=== PATIENT | male | born 1950 | race African-American/Black ===

== ENCOUNTER 2017-03-01 18:29 | Inpatient (IN) | payer MEDICARE ==
[2017-03-01] MEDS ORDERED: NACL 0.9% 500 ML 500 ML IV ONE ×2 (19:10→21:15)
[2017-03-01 20:50] LABS: Albumin 2.6 g/dL (3.9-5); Albumin/Globulin Ratio 1.4 %; BUN/Creatinine Ratio 25.88; Bilirubin,Total 0.7 mg/dL (0.1-1.2); Calcium 7.8 mg/dL (8.4-10.2); Chloride 94.7 mmol/L (98-107); Total Protein 4.4 g/dL (6.3-8.2)
[2017-03-01 20:51] LABS: Potassium 5.6 mmol/L (3.6-5.0)
[2017-03-01 20:52] LABS: Hematocrit 25.1 % (35.5-45.6); Hemoglobin 8.3 gm/dl (11.8-15.2); Mean Corpuscular HGB Conc 33 % (32-34); Mean Corpuscular Hemoglobin 28 pg (28-32); Mean Corpuscular Volume 85 fl (84-94); Platelet Count 190 K/mm3 (140-440); Red Blood Count 2.96 M/mm3 (3.65-5.03); Red Cell Distribution Width 22.8 % (13.2-15.2); White Blood Count 13.1 K/mm3 (4.5-11.0)
[2017-03-01 21:00] LABS: INR 1.29 (0.87-1.13)
[2017-03-01] MEDS ORDERED: PROTONIX IV ONE (21:15)
[2017-03-01] MEDS ORDERED: KIONEX PO ONE (21:17)
--- NOTE | 2017-03-01 21:18 | Emergency Department Report ---
ED General Adult HPI - General Chief complaint: Dyspnea/Respdistress Stated complaint: UNRESPONSIVE Time Seen by Provider: 03/01/17 21:01 Source: family, EMS (ems notes not available at time of chart dictation), RN notes reviewed, old records reviewed Mode of arrival: Stretcher Limitations: Language Barrier (patient declines formal mechanical product engineer, he requested that family translate for him) - History of Present Illness Initial comments: This is a 67-year-old male, the patient has previously unknown to this provider. Past medical history includes metastatic lung cancer, hypertension, diabetes, heart disease with stents, currently on Plavix. Patient recently admitted to [facility] for hyperkalemia, azotemia, anemia, had a CT scan of the chest which was negative for pulmonary embolus, CT scan of the chest did demonstrate right upper lobe pulmonary artery being occluded secondary to large pulmonary mass, right middle lobe pulmonary artery was noted to be narrowed. Patient also had a CT scan of the abdomen and pelvis which demonstrated the same aforementioned large pulmonary mass, some intra-abdominal lymphadenopathy. Patient also had a noncontrast CT scan of the brain which demonstrated no acute findings or hemorrhage. Patient also has a gastric antrum biopsy, demonstrated "moderate acute and chronic inflammation with associated Helicobacter-like organisms and focal erosion." Laboratory studies also demonstrated anemia, hyperkalemia, without renal insufficiency. The patient is brought to the hospital by his daughter today, she reports that the patient has been generally weak, and had an episode of "spacing out." This is now resolved, she reports that the patient still appears weak, the patient only complains of weakness to her, symptoms are constant, and do not have exacerbating or relieving factors. Chronic shortness of breath, which is not a new, worsening or different, there is no chest pain, there is no abdominal pain , there is no hematemesis or bright red blood per rectum, there are no urinary symptoms. -: Sudden Severity scale (0 -10): 0 Improves with: none Worsens with: none Associated Symptoms: confusion, malaise, weakness - Related Data Home Medications Medication Instructions Recorded Confirmed Last Taken Dexamethasone [Decadron] 4 mg PO Q12H 03/01/17 03/01/17 Unknown HYDROmorphone [Dilaudid] 2 mg PO Q4HR 03/01/17 03/01/17 Unknown Lisinopril [Zestril TAB] 40 mg PO QDAY 03/01/17 03/01/17 Unknown Morphine [Morphine TAB] 15 mg PO 03/01/17 Unknown amLODIPine [Norvasc] 5 mg PO DAILY 03/01/17 03/01/17 Unknown metFORMIN [Glucophage] 750 mg PO BID 03/01/17 03/01/17 Unknown Previous Rx's Medication Instructions Recorded Last Taken Type Aspirin [Aspirin TAB] 325 mg PO QDAY #30 tablet 09/10/13 Unknown Rx Clopidogrel [Plavix] 75 mg PO QDAY #30 tablet 09/10/13 Unknown Rx Isosorbide Mononitrate [Isosorbide 30 mg PO DAILY #30 tab.er.24h 09/10/13 Unknown Rx Mononitrate ER] Metoprolol [Lopressor TAB] 25 mg PO BID #60 tablet 09/10/13 Unknown Rx Pravastatin (Nf) [Pravachol] 40 mg PO QHS #30 tablet 09/10/13 Unknown Rx Allergies Allergy/AdvReac Type Severity Reaction Status Date / Time No Known Allergies Allergy Verified 03/01/17 18:40 ED Review of Systems ROS: Stated complaint: UNRESPONSIVE Other details as noted in HPI Comment: Unobtainable due to pts medical conditions ED Past Medical Hx - Past Medical History Previous Medical History?: Yes Hx Hypertension: Yes Hx Diabetes: No Hx of Cancer: Yes (Small Cell Lung CA) - Social History Smoking Status: Never Smoker Substance Use Type: None - Medications Home Medications: Home Medications Medication Instructions Recorded Confirmed Last Taken Type Aspirin [Aspirin TAB] 325 mg PO QDAY #30 tablet 09/10/13 03/01/17 Unknown Rx Clopidogrel [Plavix] 75 mg PO QDAY #30 tablet 09/10/13 03/01/17 Unknown Rx Isosorbide Mononitrate [Isosorbide 30 mg PO DAILY #30 tab.er.24h 09/10/13 Unknown Rx Mononitrate ER] Metoprolol [Lopressor TAB] 25 mg PO BID #60 tablet 09/10/13 03/01/17 Unknown Rx Pravastatin (Nf) [Pravachol] 40 mg PO QHS #30 tablet 09/10/13 03/01/17 Unknown Rx Dexamethasone [Decadron] 4 mg PO Q12H 03/01/17 03/01/17 Unknown History HYDROmorphone [Dilaudid] 2 mg PO Q4HR 03/01/17 03/01/17 Unknown History Lisinopril [Zestril TAB] 40 mg PO QDAY 03/01/17 03/01/17 Unknown History Morphine [Morphine TAB] 15 mg PO 03/01/17 Unknown History amLODIPine [Norvasc] 5 mg PO DAILY 03/01/17 03/01/17 Unknown History metFORMIN [Glucophage] 750 mg PO BID 03/01/17 03/01/17 Unknown History ED Physical Exam - General Limitations: Language Barrier, Physical Limitation General appearance: alert, lethargic - Head Head exam: Present: atraumatic, normocephalic - Eye Eye exam: Present: normal appearance, EOMI. Absent: nystagmus - ENT ENT exam: Present: mucous membranes dry, normal external ear exam - Neck Neck exam: Present: normal inspection, full ROM. Absent: tenderness, meningismus - Respiratory Respiratory exam: Present: normal lung sounds bilaterally. Absent: respiratory distress, wheezes, rales, rhonchi, stridor, chest wall tenderness, accessory muscle use, decreased breath sounds, prolonged expiratory - Cardiovascular Cardiovascular Exam: Present: normal rhythm, tachycardia, normal heart sounds. Absent: bradycardia, irregular rhythm, systolic murmur, diastolic murmur, rubs, gallop - GI/Abdominal GI/Abdominal exam: Present: soft, normal bowel sounds. Absent: distended, tenderness, guarding, rebound, rigid, pulsatile mass - Rectal Rectal exam: Present: normal inspection, normal rectal tone, heme (+) stool - exam: Present: normal inspection External exam: Present: normal external exam - Extremities Exam Extremities exam: Present: normal inspection, full ROM, normal capillary refill. Absent: calf tenderness - Back Exam Back exam: Present: normal inspection, full ROM. Absent: tenderness, CVA tenderness (R) - Neurological Exam Neurological exam: Present: alert, other (Extraocular movements intact. Tongue midline. No facial droop. Facial sensation intact to light touch in the V1, V2 , V3 distribution bilaterally. 5 and 5 strength in 4 extremities.. Sensation is intact to light touch in 4 extremities.). Absent: motor sensory deficit - Psychiatric Psychiatric exam: Present: normal affect, normal mood - Skin Skin exam: Present: warm, dry, intact, normal color. Absent: rash ED Course Vital Signs 0903/01/17 03/01/17 18:37 18:45 18:53 Temperature 98.7 F Pulse Rate 101 H 101 H Respiratory 33 H 41 H 34 H Rate Blood Pressure Blood Pressure 99/55 [Right] O2 Sat by Pulse 100 100 99 Oximetry 03/01/17 03/01/17 03/01/17 19:01 19:15 19:31 Temperature Pulse Rate 97 H 97 H 90 Respiratory 24 15 18 Rate Blood Pressure 95/53 95/53 95/53 Blood Pressure [Right] O2 Sat by Pulse 98 91 100 Oximetry 03/01/17 03/01/17 03/01/17 19:45 19:55 20:00 Temperature 98.1 F Pulse Rate 90 87 86 Respiratory 18 18 14 Rate Blood Pressure 95/53 75/49 Blood Pressure 90/52 [Right] O2 Sat by Pulse 95 98 98 Oximetry 03/01/17 03/01/17 03/01/17 20:15 20:31 20:45 Temperature Pulse Rate 87 88 87 Respiratory 12 13 18 Rate Blood Pressure 75/49 97/54 97/54 Blood Pressure [Right] O2 Sat by Pulse 95 95 99 Oximetry 03/01/17 03/01/17 03/01/17 21:00 21:15 21:43 Temperature Pulse Rate 90 89 104 H Respiratory 13 20 Rate Blood Pressure 96/60 96/60 96/60 Blood Pressure [Right] O2 Sat by Pulse 95 96 Oximetry 03/01/17 03/01/17 03/01/17 21:45 22:00 22:41 Temperature Pulse Rate 87 88 91 H Respiratory 21 18 12 Rate Blood Pressure 101/57 93/58 96/60 Blood Pressure [Right] O2 Sat by Pulse 99 94 99 Oximetry 03/01/17 03/01/17 03/01/17 22:45 23:00 23:15 Temperature Pulse Rate 93 H 90 93 H Respiratory 10 L 18 18 Rate Blood Pressure 115/71 100/55 103/58 Blood Pressure [Right] O2 Sat by Pulse 100 100 100 Oximetry 03/01/17 03/01/17 03/02/17 23:30 23:45 00:00 Temperature Pulse Rate 91 H 91 H 94 H Respiratory 21 15 15 Rate Blood Pressure 98/62 104/59 106/71 Blood Pressure [Right] O2 Sat by Pulse 100 100 100 Oximetry ED Medical Decision Making - Lab Data Result diagrams: 03/01/17 20:25 03/01/17 19:10 Vital Signs 03/01/17 03/01/17 18:53 19:55 Temperature 98.7 F 98.1 F Pulse Rate 101 H 87 Respiratory 34 H 18 Rate Blood Pressure 99/55 90/52 [Right] O2 Sat by Pulse 99 98 Oximetry Lab Results 03/01/17 03/01/17 03/01/17 Range/Units 19:10 20:25 20:25 WBC 13.1 H (4.5-11.0) K/mm3 RBC 2.96 L (3.65-5.03) M/mm3 Hgb 8.3 L (11.8-15.2) gm/dl Hct 25.1 L (35.5-45.6) % MCV 85 (84-94) fl MCH 28 (28-32) pg MCHC 33 (32-34) % RDW 22.8 H (13.2-15.2) % Plt Count 190 (140-440) K/mm3 Add Manual Diff Complete Total Counted 100 Seg Neuts % (Manual) 83.0 H (40.0-70.0) % Band Neutrophils % 7.0 % Lymphocytes % (Manual) 1.0 L (13.4-35.0) % Reactive Lymphs % (Man) 0 % Monocytes % (Manual) 8.0 H (0.0-7.3) % Eosinophils % (Manual) 1.0 (0.0-4.3) % Basophils % (Manual) 0 (0.0-1.8) % Metamyelocytes % 0 % Myelocytes % 0 % Promyelocytes % 0 % Blast Cells % 0 % Nucleated RBC % Not Reportable Seg Neutrophils # Man 10.9 H (1.8-7.7) K/mm3 Band Neutrophils # 0.9 K/mm3 Lymphocytes # (Manual) 0.1 L (1.2-5.4) K/mm3 Abs React Lymphs (Man) 0.0 K/mm3 Monocytes # (Manual) 1.0 H (0.0-0.8) K/mm3 Eosinophils # (Manual) 0.1 (0.0-0.4) K/mm3 Basophils # (Manual) 0.0 (0.0-0.1) K/mm3 Metamyelocytes # 0.0 K/mm3 Myelocytes # 0.0 K/mm3 Promyelocytes # 0.0 K/mm3 Blast Cells # 0.0 K/mm3 WBC Morphology Not Reportable Hypersegmented Neuts Not Reportable Hyposegmented Neuts Not Reportable Hypogranular Neuts Not Reportable Smudge Cells Not Reportable Toxic Granulation Not Reportable Toxic Vacuolation Not Reportable Dohle Bodies Not Reportable Pelger-Huet Anomaly Not Reportable Keegan Rods Not Reportable Platelet Estimate Appears normal Clumped Platelets Not Reportable Plt Clumps, EDTA Not Reportable Large Platelets Not Reportable Giant Platelets Not Reportable Platelet Satelliting Not Reportable Plt Morphology Comment Not Reportable RBC Morphology Not Reportable Dimorphic RBCs Not Reportable Polychromasia Not Reportable Hypochromasia Not Reportable Poikilocytosis Not Reportable Anisocytosis Not Reportable Microcytosis Not Reportable Macrocytosis Not Reportable Spherocytes Not Reportable Pappenheimer Bodies Not Reportable Sickle Cells Not Reportable Target Cells Not Reportable Tear Drop Cells Not Reportable Ovalocytes Few Helmet Cells Not Reportable Bal[place]zar-[place]cock Bodies Not Reportable [place] Rings Not Reportable [place] Cells Not Reportable Bite Cells Not Reportable Crenated Cell Not Reportable Elliptocytes Not Reportable Acanthocytes (Spur) Not Reportable Rouleaux Not Reportable Hemoglobin C Crystals Not Reportable Schistocytes Not Reportable Malaria parasites Not Reportable Melvin Bodies Not Reportable Hem Pathologist Commnt No PT 16.0 H (12.2-14.9) Sec. INR 1.29 H (0.87-1.13) VBG pH (7.320-7.420) Sodium 128 L (137-145) mmol/L Potassium 5.6 H (3.6-5.0) mmol/L Chloride 94.7 L (98-107) mmol/L Carbon Dioxide 19 L (22-30) mmol/L Anion Gap 20 mmol/L BUN 44 H (9-20) mg/dL Creatinine 1.7 H (0.8-1.5) mg/dL Estimated GFR 40 ml/min BUN/Creatinine Ratio 25.88 % Glucose 141 H (75-100) mg/dL Lactic Acid (0.7-2.0) mmol/L Calcium 7.8 L (8.4-10.2) mg/dL Total Bilirubin 0.70 (0.1-1.2) mg/dL AST 30 (5-40) units/L ALT 24 (7-56) units/L Alkaline Phosphatase 75 (35-129) units/L Troponin T (0.00-0.029) ng/mL Total Protein 4.4 L (6.3-8.2) g/dL Albumin 2.6 L (3.9-5) g/dL Albumin/Globulin Ratio 1.4 % Urine Color (Yellow) Urine Turbidity (Clear) Urine pH (5.0-7.0) Ur Specific [place] (1.003-1.030) Urine Protein (Negative) mg/dL Urine Glucose (UA) (Negative) mg/dL Urine Ketones (Negative) mg/dL Urine Blood (Negative) Urine Nitrite (Negative) Urine Bilirubin (Negative) Urine Urobilinogen (<2.0) mg/dL Ur Leukocyte Esterase (Negative) Urine WBC (Auto) (0.0-6.0) /HPF Urine RBC (Auto) (0.0-6.0) /HPF Hyaline Casts /LPF Blood Type Crossmatch 03/01/17 03/01/17 03/01/17 Range/Units 20:25 20:25 20:25 WBC (4.5-11.0) K/mm3 RBC (3.65-5.03) M/mm3 Hgb (11.8-15.2) gm/dl Hct (35.5-45.6) % MCV (84-94) fl MCH (28-32) pg MCHC (32-34) % RDW (13.2-15.2) % Plt Count (140-440) K/mm3 Add Manual Diff Total Counted Seg Neuts % (Manual) (40.0-70.0) % Band Neutrophils % % Lymphocytes % (Manual) (13.4-35.0) % Reactive Lymphs % (Man) % Monocytes % (Manual) (0.0-7.3) % Eosinophils % (Manual) (0.0-4.3) % Basophils % (Manual) (0.0-1.8) % Metamyelocytes % % Myelocytes % % Promyelocytes % % Blast Cells % % Nucleated RBC % Seg Neutrophils # Man (1.8-7.7) K/mm3 Band Neutrophils # K/mm3 Lymphocytes # (Manual) (1.2-5.4) K/mm3 Abs React Lymphs (Man) K/mm3 Monocytes # (Manual) (0.0-0.8) K/mm3 Eosinophils # (Manual) (0.0-0.4) K/mm3 Basophils # (Manual) (0.0-0.1) K/mm3 Metamyelocytes # K/mm3 Myelocytes # K/mm3 Promyelocytes # K/mm3 Blast Cells # K/mm3 WBC Morphology Hypersegmented Neuts Hyposegmented Neuts Hypogranular Neuts Smudge Cells Toxic Granulation Toxic Vacuolation Dohle Bodies Pelger-Huet Anomaly Keegan Rods Platelet Estimate Clumped Platelets Plt Clumps, EDTA Large Platelets Giant Platelets Platelet Satelliting Plt Morphology Comment RBC Morphology Dimorphic RBCs Polychromasia Hypochromasia Poikilocytosis Anisocytosis Microcytosis Macrocytosis Spherocytes Pappenheimer Bodies Sickle Cells Target Cells Tear Drop Cells Ovalocytes Helmet Cells Bal[place]zar-[place]cock Bodies [place] Rings [place] Cells Bite Cells Crenated Cell Elliptocytes Acanthocytes (Spur) Rouleaux Hemoglobin C Crystals Schistocytes Malaria parasites Melvin Bodies Hem Pathologist Commnt PT (12.2-14.9) Sec. INR (0.87-1.13) VBG pH 7.372 (7.320-7.420) Sodium (137-145) mmol/L Potassium (3.6-5.0) mmol/L Chloride (98-107) mmol/L Carbon Dioxide (22-30) mmol/L Anion Gap mmol/L BUN (9-20) mg/dL Creatinine (0.8-1.5) mg/dL Estimated GFR ml/min BUN/Creatinine Ratio % Glucose (75-100) mg/dL Lactic Acid 1.20 (0.7-2.0) mmol/L Calcium (8.4-10.2) mg/dL Total Bilirubin (0.1-1.2) mg/dL AST (5-40) units/L ALT (7-56) units/L Alkaline Phosphatase (35-129) units/L Troponin T < 0.010 (0.00-0.029) ng/mL Total Protein (6.3-8.2) g/dL Albumin (3.9-5) g/dL Albumin/Globulin Ratio % Urine Color (Yellow) Urine Turbidity (Clear) Urine pH (5.0-7.0) Ur Specific [place] (1.003-1.030) Urine Protein (Negative) mg/dL Urine Glucose (UA) (Negative) mg/dL Urine Ketones (Negative) mg/dL Urine Blood (Negative) Urine Nitrite (Negative) Urine Bilirubin (Negative) Urine Urobilinogen (<2.0) mg/dL Ur Leukocyte Esterase (Negative) Urine WBC (Auto) (0.0-6.0) /HPF Urine RBC (Auto) (0.0-6.0) /HPF Hyaline Casts /LPF Blood Type Crossmatch 03/01/17 03/01/17 03/01/17 Range/Units 21:15 21:30 21:30 WBC (4.5-11.0) K/mm3 RBC (3.65-5.03) M/mm3 Hgb (11.8-15.2) gm/dl Hct (35.5-45.6) % MCV (84-94) fl MCH (28-32) pg MCHC (32-34) % RDW (13.2-15.2) % Plt Count (140-440) K/mm3 Add Manual Diff Total Counted Seg Neuts % (Manual) (40.0-70.0) % Band Neutrophils % % Lymphocytes % (Manual) (13.4-35.0) % Reactive Lymphs % (Man) % Monocytes % (Manual) (0.0-7.3) % Eosinophils % (Manual) (0.0-4.3) % Basophils % (Manual) (0.0-1.8) % Metamyelocytes % % Myelocytes % % Promyelocytes % % Blast Cells % % Nucleated RBC % Seg Neutrophils # Man (1.8-7.7) K/mm3 Band Neutrophils # K/mm3 Lymphocytes # (Manual) (1.2-5.4) K/mm3 Abs React Lymphs (Man) K/mm3 Monocytes # (Manual) (0.0-0.8) K/mm3 Eosinophils # (Manual) (0.0-0.4) K/mm3 Basophils # (Manual) (0.0-0.1) K/mm3 Metamyelocytes # K/mm3 Myelocytes # K/mm3 Promyelocytes # K/mm3 Blast Cells # K/mm3 WBC Morphology Hypersegmented Neuts Hyposegmented Neuts Hypogranular Neuts Smudge Cells Toxic Granulation Toxic Vacuolation Dohle Bodies Pelger-Huet Anomaly Keegan Rods Platelet Estimate Clumped Platelets Plt Clumps, EDTA Large Platelets Giant Platelets Platelet Satelliting Plt Morphology Comment RBC Morphology Dimorphic RBCs Polychromasia Hypochromasia Poikilocytosis Anisocytosis Microcytosis Macrocytosis Spherocytes Pappenheimer Bodies Sickle Cells Target Cells Tear Drop Cells Ovalocytes Helmet Cells Baltazar-[place]cock Bodies [place] Rings [place] Cells Bite Cells Crenated Cell Elliptocytes Acanthocytes (Spur) Rouleaux Hemoglobin C Crystals Schistocytes Malaria parasites Melvin Bodies Hem Pathologist Commnt PT 15.2 H (12.2-14.9) Sec. INR 1.21 H (0.87-1.13) VBG pH (7.320-7.420) Sodium (137-145) mmol/L Potassium (3.6-5.0) mmol/L Chloride (98-107) mmol/L Carbon Dioxide (22-30) mmol/L Anion Gap mmol/L BUN (9-20) mg/dL Creatinine (0.8-1.5) mg/dL Estimated GFR ml/min BUN/Creatinine Ratio % Glucose (75-100) mg/dL Lactic Acid 0.80 (0.7-2.0) mmol/L Calcium (8.4-10.2) mg/dL Total Bilirubin (0.1-1.2) mg/dL AST (5-40) units/L ALT (7-56) units/L Alkaline Phosphatase (35-129) units/L Troponin T (0.00-0.029) ng/mL Total Protein (6.3-8.2) g/dL Albumin (3.9-5) g/dL Albumin/Globulin Ratio % Urine Color Yellow (Yellow) Urine Turbidity Clear (Clear) Urine pH 6.0 (5.0-7.0) Ur Specific [place] 1.010 (1.003-1.030) Urine Protein <15 mg/dl (Negative) mg/dL Urine Glucose (UA) Neg (Negative) mg/dL Urine Ketones Neg (Negative) mg/dL Urine Blood Neg (Negative) Urine Nitrite Neg (Negative) Urine Bilirubin Neg (Negative) Urine Urobilinogen < 2.0 (<2.0) mg/dL Ur Leukocyte Esterase Neg (Negative) Urine WBC (Auto) 1.0 (0.0-6.0) /HPF Urine RBC (Auto) 1.0 (0.0-6.0) /HPF Hyaline Casts 1 /LPF Blood Type Crossmatch 03/01/17 Range/Units 21:30 WBC (4.5-11.0) K/mm3 RBC (3.65-5.03) M/mm3 Hgb (11.8-15.2) gm/dl Hct (35.5-45.6) % MCV (84-94) fl MCH (28-32) pg MCHC (32-34) % RDW (13.2-15.2) % Plt Count (140-440) K/mm3 Add Manual Diff Total Counted Seg Neuts % (Manual) (40.0-70.0) % Band Neutrophils % % Lymphocytes % (Manual) (13.4-35.0) % Reactive Lymphs % (Man) % Monocytes % (Manual) (0.0-7.3) % Eosinophils % (Manual) (0.0-4.3) % Basophils % (Manual) (0.0-1.8) % Metamyelocytes % % Myelocytes % % Promyelocytes % % Blast Cells % % Nucleated RBC % Seg Neutrophils # Man (1.8-7.7) K/mm3 Band Neutrophils # K/mm3 Lymphocytes # (Manual) (1.2-5.4) K/mm3 Abs React Lymphs (Man) K/mm3 Monocytes # (Manual) (0.0-0.8) K/mm3 Eosinophils # (Manual) (0.0-0.4) K/mm3 Basophils # (Manual) (0.0-0.1) K/mm3 Metamyelocytes # K/mm3 Myelocytes # K/mm3 Promyelocytes # K/mm3 Blast Cells # K/mm3 WBC Morphology Hypersegmented Neuts Hyposegmented Neuts Hypogranular Neuts Smudge Cells Toxic Granulation Toxic Vacuolation Dohle Bodies Pelger-Huet Anomaly Keegan Rods Platelet Estimate Clumped Platelets Plt Clumps, EDTA Large Platelets Giant Platelets Platelet Satelliting Plt Morphology Comment RBC Morphology Dimorphic RBCs Polychromasia Hypochromasia Poikilocytosis Anisocytosis Microcytosis Macrocytosis Spherocytes Pappenheimer Bodies Sickle Cells Target Cells Tear Drop Cells Ovalocytes Helmet Cells Baltazar-[place]cock Bodies [place] Rings [place] Cells Bite Cells Crenated Cell Elliptocytes Acanthocytes (Spur) Rouleaux Hemoglobin C Crystals Schistocytes Malaria parasites Melvin Bodies Hem Pathologist Commnt PT (12.2-14.9) Sec. INR (0.87-1.13) VBG pH (7.320-7.420) Sodium (137-145) mmol/L Potassium (3.6-5.0) mmol/L Chloride (98-107) mmol/L Carbon Dioxide (22-30) mmol/L Anion Gap mmol/L BUN (9-20) mg/dL Creatinine (0.8-1.5) mg/dL Estimated GFR ml/min BUN/Creatinine Ratio % Glucose (75-100) mg/dL Lactic Acid (0.7-2.0) mmol/L Calcium (8.4-10.2) mg/dL Total Bilirubin (0.1-1.2) mg/dL AST (5-40) units/L ALT (7-56) units/L Alkaline Phosphatase (35-129) units/L Troponin T (0.00-0.029) ng/mL Total Protein (6.3-8.2) g/dL Albumin (3.9-5) g/dL Albumin/Globulin Ratio % Urine Color (Yellow) Urine Turbidity (Clear) Urine pH (5.0-7.0) Ur Specific [place] (1.003-1.030) Urine Protein (Negative) mg/dL Urine Glucose (UA) (Negative) mg/dL Urine Ketones (Negative) mg/dL Urine Blood (Negative) Urine Nitrite (Negative) Urine Bilirubin (Negative) Urine Urobilinogen (<2.0) mg/dL Ur Leukocyte Esterase (Negative) Urine WBC (Auto) (0.0-6.0) /HPF Urine RBC (Auto) (0.0-6.0) /HPF Hyaline Casts /LPF Blood Type B POSITIVE Crossmatch See Detail - EKG Data -: EKG Interpreted by Ca - EKG Data When compared to previous EKG there are: previous EKG unavailable 03/01/17 22:39 Motion artifact, sinus, 98 bpm, normal axis, not morphologically consistent with STEMI - Radiology Data Radiology results: report reviewed, image reviewed X-ray the chest demonstrates known right upper lobe malignancy Noncontrast CT scan of the brain is negative. - Medical Decision Making Differential diagnosis: Upper GI bleed, dehydration, pneumonia, urinary tract infection, malignancy Assessment and plan: 67-year-old male with a history of resolved altered mental status, coming in with a nonfocal neurologic examination, generalized weakness, borderline hypotension. Has hyperkalemia without hemolysis, anemia, guaiac positive stool. Patient recently ruled out for pulmonary embolus at another hospital, I have obtained his medical records, I don't see any reason to obtain a repeat CT scan of the chest in the emergency department. A noncontrast CT scan of the brain was negative for acute findings, patient will be started on packed red blood cell transfusion, case is presented to the adapted physical education aide real estate operations manager, Dr. Barahona, who agrees to see the patient in consultation. The case was presented to the Hospital physician, Dr. Carbone, she accepted the patient to her service. Critical care attestation.: If time is entered above; I have spent that time in minutes in the direct care of this critically ill patient, excluding procedure time. ED Disposition Clinical Impression: Hyponatremia, Renal insufficiency, Hyperkalemia, GI bleed Disposition: [id number] OP ADMIT IP TO THIS HOSP Is pt being admited?: Yes Condition: Fair
[2017-03-01 21:28] LABS: Bilirubin,Urine NEG (Negative); Blood,Urine NEG (Negative); Ketones,Urine NEG (Negative); Leukocyte Esterase,Urine NEG (Negative); Nitrite,Urine NEG (Negative); Protein,Urine <15 mg/dL mg/dL (Negative); Urobilinogen,Urine < 2.0 mg/dL (<2.0)
--- NOTE | 2017-03-01 21:42 | XRay Report ---
FINAL REPORT EXAM: XR CHEST 1V AP HISTORY: possible Sepsis TECHNIQUE: Chest single AP PRIORS: None. FINDINGS: There are numerous bilateral pulmonary nodules measuring up to 2.5 centimeters in transverse diameter. There is widening of the mediastinum could reflect adenopathy. No pleural effusion identified Hazy density in the right upper lobe distribution noted most consistent with right upper lobe atelectasis. IMPRESSION: Numerous pulmonary nodules consistent with metastatic disease Widened mediastinum suggestive of adenopathy Right upper lobe atelectasis suspect endobronchial obstructive process.
[2017-03-01 21:48] LABS: Basophils % (Manual) 0 % (0.0-1.8); Blastocytes % (Manual) 0 %
[2017-03-01 21:52] LABS: Ovalocytes Few
[2017-03-01 21:53] LABS: Diff Status Complete
[2017-03-01] MEDS: NACL 0.9% 500 ML 500 ML IV SCH (22:10)
[2017-03-01 22:15] LABS: INR 1.21 (0.87-1.13)
[2017-03-01] MEDS ORDERED: ZOFRAN IV PRN (23:22)
[2017-03-01] MEDS ORDERED: MILK OF MAGNESIA PO PRN (23:22)
[2017-03-01] MEDS ORDERED: TYLENOL PO PRN (23:22)
[2017-03-01] MEDS ORDERED: DULCOLAX PR PRN (23:22)
--- NOTE | 2017-03-01 23:22 | Cat Scan Report ---
FINAL REPORT EXAM: CT HEAD/BRAIN WO CON HISTORY: ams TECHNIQUE: CT head without contrast PRIORS: None. FINDINGS: No acute intra-axial or extra-axial hemorrhage is identified. There is no evidence of midline shift or mass effect. The ventricles and sulci are within normal limits. Young-white matter differentiation is intact. No acute parenchymal abnormalities seen. There are patchy and confluent hypodensities within the supratentorial white matter. There is a remote lacunar infarct within the right thalamus Bony calvarium is grossly intact. Visualized portions of the mastoids and paranasal sinuses are unremarkable. 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 No acute abnormality identified
--- NOTE | 2017-03-01 23:25 | History and Physical Report ---
History of Present Illness Date of examination: 03/01/17 History of present illness: 67-year-old male with a history of hypertension, diabetes, coronary artery disease, metastatic lung cancer was brought to the emergency room because he experienced a brief episode of decreased responsiveness. Patient also complaining of feeling dizzy. Denies black stool, hematemesis. His records was reviewed from [facility]. 2 weeks ago he had an endoscopy which showed 4 ulcers, he was anemic at the time and transfuse packed red blood cells and is being treated for H. pylori Review Of Systems: Constitutional: no weight loss Ears, eyes, nose, mouth and throat: no nasal congestion, no nasal discharge, no sinus pressure, blurry vision, diplopia Neck: No neck pain or rigidity. Cardiovascular: chest pain, orthopnea, palpitations Respiratory: No shortness of breath, cough Gastrointestinal: abdominal pain, hematochezia Genitourinary : no dysuria, frequency , hematuria Musculoskeletal: no muscle ache Integumentary: no rash, no pruritis Neurological: no parathesias, focal weakness Endocrine: no cold or heat intolerance, no polyuria or polydipsia Hematologic/Lymphatic: no easy bruising, no easy bleeding, no gland swelling Allergic/Immunologic: no urticaria, no angioedema. lPAST MEDICAL HISTORY:hypertension, diabetes, coronary artery disease, metastatic lung cancer PAST SURGICAL HISTORY:None FAMILY HISTORY:hypertension SOCIAL HISTORY: Denies alcohol, tobacco, drugs Medications and Allergies Allergies Allergy/AdvReac Type Severity Reaction Status Date / Time No Known Allergies Allergy Verified 03/01/17 18:40 Home Medications Medication Instructions Recorded Confirmed Last Taken Type Aspirin [Aspirin TAB] 325 mg PO QDAY #30 tablet 09/10/13 03/01/17 Unknown Rx Clopidogrel [Plavix] 75 mg PO QDAY #30 tablet 09/10/13 03/01/17 Unknown Rx Isosorbide Mononitrate [Isosorbide 30 mg PO DAILY #30 tab.er.24h 09/10/13 Unknown Rx Mononitrate ER] Metoprolol [Lopressor TAB] 25 mg PO BID #60 tablet 09/10/13 03/01/17 Unknown Rx Pravastatin (Nf) [Pravachol] 40 mg PO QHS #30 tablet 09/10/13 03/01/17 Unknown Rx Dexamethasone [Decadron] 4 mg PO Q12H 03/01/17 03/01/17 Unknown History HYDROmorphone [Dilaudid] 2 mg PO Q4HR 03/01/17 03/01/17 Unknown History Lisinopril [Zestril TAB] 40 mg PO QDAY 03/01/17 03/01/17 Unknown History Morphine [Morphine TAB] 15 mg PO 03/01/17 Unknown History amLODIPine [Norvasc] 5 mg PO DAILY 03/01/17 03/01/17 Unknown History metFORMIN [Glucophage] 750 mg PO BID 03/01/17 03/01/17 Unknown History Active Meds: Active Medications Sodium Chloride (Nacl 0.9% 500 Ml) 500 mls @ 50 mls/hr IV DIRECT AGUILAR Stop: 03/02/17 07:59 Last Admin: 03/01/17 22:10 Dose: 50 mls/hr Exam - Physical Exam Narrative exam: Gen. appearance: Patient lying in bed in no acute distress HEENT: Normocephalic/atraumatic, pupils equal round reactive to light, extra alkaline movement intact, no scleral icterus, no JVD or thyromegaly or nodule, neck is supple, mucous membrane moist, no erythema or exudate Heart: S1-S2, regular rate and rhythm Lungs: Clear to auscultation bilateral breathing comfortable Abdomen: Positive bowel sounds, nontender, nondistended, no organomegaly Extremities: No edema, cyanosis, clubbing Neuro:: Oriented 3 , cranial nerves II-12 intact, speech, motor intact Skin: No rash, nodules, warm dry Rectal: brown, heme positive - Constitutional Vitals: Temp Pulse Resp BP Pulse Ox 98.1 F 93 H 10 L 115/71 100 03/01/17 19:55 03/01/17 22:45 03/01/17 22:45 03/01/17 22:45 03/01/17 22:45 Results - Labs CBC & Chem 7: 03/02/17 04:24 03/02/17 04:24 Labs: Abnormal lab results 03/01/17 03/01/17 03/01/17 Range/Units 19:10 20:25 20:25 WBC 13.1 H (4.5-11.0) K/mm3 RBC 2.96 L (3.65-5.03) M/mm3 Hgb 8.3 L (11.8-15.2) gm/dl Hct 25.1 L (35.5-45.6) % RDW 22.8 H (13.2-15.2) % Seg Neuts % (Manual) 83.0 H (40.0-70.0) % Lymphocytes % (Manual) 1.0 L (13.4-35.0) % Monocytes % (Manual) 8.0 H (0.0-7.3) % Seg Neutrophils # Man 10.9 H (1.8-7.7) K/mm3 Lymphocytes # (Manual) 0.1 L (1.2-5.4) K/mm3 Monocytes # (Manual) 1.0 H (0.0-0.8) K/mm3 PT 16.0 H (12.2-14.9) Sec. INR 1.29 H (0.87-1.13) Sodium 128 L (137-145) mmol/L Potassium 5.6 H (3.6-5.0) mmol/L Chloride 94.7 L (98-107) mmol/L Carbon Dioxide 19 L (22-30) mmol/L BUN 44 H (9-20) mg/dL Creatinine 1.7 H (0.8-1.5) mg/dL Glucose 141 H (75-100) mg/dL Calcium 7.8 L (8.4-10.2) mg/dL Total Protein 4.4 L (6.3-8.2) g/dL Albumin 2.6 L (3.9-5) g/dL Crossmatch 03/01/17 03/01/17 Range/Units 21:30 21:30 WBC (4.5-11.0) K/mm3 RBC (3.65-5.03) M/mm3 Hgb (11.8-15.2) gm/dl Hct (35.5-45.6) % RDW (13.2-15.2) % Seg Neuts % (Manual) (40.0-70.0) % Lymphocytes % (Manual) (13.4-35.0) % Monocytes % (Manual) (0.0-7.3) % Seg Neutrophils # Man (1.8-7.7) K/mm3 Lymphocytes # (Manual) (1.2-5.4) K/mm3 Monocytes # (Manual) (0.0-0.8) K/mm3 PT 15.2 H (12.2-14.9) Sec. INR 1.21 H (0.87-1.13) Sodium (137-145) mmol/L Potassium (3.6-5.0) mmol/L Chloride (98-107) mmol/L Carbon Dioxide (22-30) mmol/L BUN (9-20) mg/dL Creatinine (0.8-1.5) mg/dL Glucose (75-100) mg/dL Calcium (8.4-10.2) mg/dL Total Protein (6.3-8.2) g/dL Albumin (3.9-5) g/dL Crossmatch See Detail - Imaging and Cardiology Chest x-ray: report reviewed CT Scan - head: pending Assessment and Plan Assessment GI Bleed Acute renal insufficiency History of Hypertension, now normotensive Diabetes Coronary artery disease Metastatic lung cancer Plan Admit to medicine Patient to receive blood transfusion Consult GI, start protonix, and IV fluids Hold antihypertensive, aspirin, Plavix for now Check fingersticks and initiate insulin sliding scale Continue appropriate outpatient medications start dvt prophylaxis
[2017-03-01] MEDS ORDERED: NACL 0.45% 1000 ML 1,000 ML IV SCH (23:45)
[2017-03-02] MEDS ORDERED: D50W (25GM) Syringe IV PRN (00:22)
[2017-03-02] MEDS: DILAUDID PO SCH ×6 (01:29→22:02)
[2017-03-02] MEDS: DECADRON PO SCH ×3 (01:30→21:59)
[2017-03-02] MEDS: NACL 0.9% 500 ML 500 ML IV SCH ×2 (01:38→01:52)
[2017-03-02 04:59] LABS: Hematocrit 26.7 % (35.5-45.6); Hemoglobin 8.8 gm/dl (11.8-15.2); Mean Corpuscular HGB Conc 33 % (32-34); Mean Corpuscular Hemoglobin 28 pg (28-32); Mean Corpuscular Volume 84 fl (84-94); Platelet Count 208 K/mm3 (140-440); Red Blood Count 3.17 M/mm3 (3.65-5.03); White Blood Count 13.5 K/mm3 (4.5-11.0)
[2017-03-02 05:08] LABS: Red Cell Distribution Width 22.7 % (13.2-15.2)
[2017-03-02 05:14] LABS: BUN/Creatinine Ratio 23.57; Chloride 98.3 mmol/L (98-107); Potassium 4.5 mmol/L (3.6-5.0)
[2017-03-02 06:41] LABS: Anisocytosis 1+; Blastocytes % (Manual) 0 %; Elliptocytes Few; Eosinophils % (Manual) 0 % (0.0-4.3); Ovalocytes Few
[2017-03-02 06:42] LABS: Diff Status Complete; Hypochromasia Few
--- NOTE | 2017-03-02 11:32 | Progress Note ---
Assessment and Plan Assessment and plan: Acute renal failure. Etiology likely secondary to vasomotor nephropathy/ dehydration. Creatinine has improved from 1.7 and 1.4. Continue to follow BMP. Encephalopathy. Etiology may be metabolic. Resolving. CT scan of the head is negative. Hematochezia. Patient with guaiac positive stool is reported in the ER. GI consultation pending. Continue Protonix IV. Acute blood loss anemia and anemia of chronic disease. As above. Patient is status post PRBCs. Continue to monitor H&H. Metastatic lung cancer. Hypertension. Patient actually hypotensive at present. Hold antihypertensive medications for now. Coronary artery disease. Hold aspirin and Plavix given the hematochezia and anemia. Continue metoprolol. Diabetes mellitus type 2. Continue Accu-Cheks and sliding scale insulin. Continue metformin twice a day. Leukocytosis. CXR reveals RUL atelectasis. ? infiltrate, ? postobstructive pneumonia. Patient is afebrile. History Interval history: Daughter is at the bedside and reports patient had some altered mentation and decreased responsiveness prior to admission. Patient back to baseline currently. No reports of chest pain or shortness of breath. Hospitalist Physical - Constitutional Vitals: Temp Pulse Resp BP Pulse Ox 98.4 F 87 20 101/66 94 03/02/17 04:25 03/02/17 04:25 03/02/17 05:37 03/02/17 04:25 03/02/17 09:09 General appearance: Present: no acute distress, well-nourished - EENT Eyes: Present: PERRL, EOM intact ENT: hearing intact, clear oral mucosa, dentition normal - Neck Neck: Present: supple, normal ROM - Respiratory Respiratory effort: normal Respiratory: bilateral: CTA - Cardiovascular Rhythm: regular Heart Sounds: Present: S1 & S2. Absent: gallop, rub - Extremities Extremities: no ischemia, No edema, Full ROM - Abdominal General gastrointestinal: soft, non-tender, non-distended, normal bowel sounds - Integumentary Integumentary: Present: clear, warm, dry - Neurologic Neurologic: CNII-XII intact, moves all extremities Results - Labs CBC & Chem 7: 03/02/17 04:24 03/02/17 04:24 Labs: Laboratory Last Values WBC 13.5 K/mm3 (4.5-11.0) H 03/02/17 04:24 RBC 3.17 M/mm3 (3.65-5.03) L 03/02/17 04:24 Hgb 8.8 gm/dl (11.8-15.2) L 03/02/17 04:24 Hct 26.7 % (35.5-45.6) L 03/02/17 04:24 MCV 84 fl (84-94) 03/02/17 04:24 MCH 28 pg (28-32) 03/02/17 04:24 MCHC 33 % (32-34) 03/02/17 04:24 RDW 22.7 % (13.2-15.2) H 03/02/17 04:24 Plt Count 208 K/mm3 (140-440) 03/02/17 04:24 Add Manual Diff Complete 03/02/17 04:24 Total Counted 100 03/02/17 04:24 Seg Neutrophils % Sample Grinder 03/02/17 04:24 Seg Neuts % (Manual) 65.0 % (40.0-70.0) 03/02/17 04:24 Band Neutrophils % 25.0 % 03/02/17 04:24 Lymphocytes % (Manual) 7.0 % (13.4-35.0) L 03/02/17 04:24 Reactive Lymphs % (Man) 0 % 03/02/17 04:24 Monocytes % (Manual) 3.0 % (0.0-7.3) 03/02/17 04:24 Eosinophils % (Manual) 0 % (0.0-4.3) 03/02/17 04:24 Basophils % (Manual) 0 % (0.0-1.8) 03/01/17 20:25 Metamyelocytes % 0 % 03/02/17 04:24 Myelocytes % 0 % 03/02/17 04:24 Promyelocytes % 0 % 03/02/17 04:24 Blast Cells % 0 % 03/02/17 04:24 Nucleated RBC % Not Reportable 03/02/17 04:24 Seg Neutrophils # Man 8.8 K/mm3 (1.8-7.7) H 03/02/17 04:24 Band Neutrophils # 3.4 K/mm3 03/02/17 04:24 Lymphocytes # (Manual) 0.9 K/mm3 (1.2-5.4) L 03/02/17 04:24 Abs React Lymphs (Man) 0.0 K/mm3 03/02/17 04:24 Monocytes # (Manual) 0.4 K/mm3 (0.0-0.8) 03/02/17 04:24 Eosinophils # (Manual) 0.0 K/mm3 (0.0-0.4) 03/02/17 04:24 Basophils # (Manual) 0.0 K/mm3 (0.0-0.1) 03/02/17 04:24 Metamyelocytes # 0.0 K/mm3 03/02/17 04:24 Myelocytes # 0.0 K/mm3 03/02/17 04:24 Promyelocytes # 0.0 K/mm3 03/02/17 04:24 Blast Cells # 0.0 K/mm3 03/02/17 04:24 WBC Morphology Not Reportable 03/02/17 04:24 Hypersegmented Neuts Not Reportable 03/02/17 04:24 Hyposegmented Neuts Not Reportable 03/02/17 04:24 Hypogranular Neuts Not Reportable 03/02/17 04:24 Smudge Cells Not Reportable 03/02/17 04:24 Toxic Granulation Not Reportable 03/02/17 04:24 Toxic Vacuolation Not Reportable 03/02/17 04:24 Dohle Bodies Not Reportable 03/02/17 04:24 Pelger-Huet Anomaly Not Reportable 03/02/17 04:24 Keegan Rods Not Reportable 03/02/17 04:24 Platelet Estimate Not Reportable 03/02/17 04:24 Clumped Platelets Not Reportable 03/02/17 04:24 Plt Clumps, EDTA Not Reportable 03/02/17 04:24 Large Platelets Not Reportable 03/02/17 04:24 Giant Platelets Not Reportable 03/02/17 04:24 Platelet Satelliting Not Reportable 03/02/17 04:24 Plt Morphology Comment Not Reportable 03/02/17 04:24 RBC Morphology Not Reportable 03/02/17 04:24 Dimorphic RBCs Not Reportable 03/02/17 04:24 Polychromasia Not Reportable 03/02/17 04:24 Hypochromasia Few 03/02/17 04:24 Poikilocytosis Not Reportable 03/02/17 04:24 Anisocytosis 1+ 03/02/17 04:24 Microcytosis Not Reportable 03/02/17 04:24 Macrocytosis Not Reportable 03/02/17 04:24 Spherocytes Not Reportable 03/02/17 04:24 Pappenheimer Bodies Not Reportable 03/02/17 04:24 Sickle Cells Not Reportable 03/02/17 04:24 Target Cells Not Reportable 03/02/17 04:24 Tear Drop Cells Not Reportable 03/02/17 04:24 Ovalocytes Few 03/02/17 04:24 Helmet Cells Not Reportable 03/02/17 04:24 Baltazar-Landa Bodies Not Reportable 03/02/17 04:24 [place] Rings Not Reportable 03/02/17 04:24 Ruben Cells Not Reportable 03/02/17 04:24 Bite Cells Not Reportable 03/02/17 04:24 Crenated Cell Not Reportable 03/02/17 04:24 Elliptocytes Few 03/02/17 04:24 Acanthocytes (Spur) Not Reportable 03/02/17 04:24 Rouleaux Not Reportable 03/02/17 04:24 Hemoglobin C Crystals Not Reportable 03/02/17 04:24 Schistocytes Not Reportable 03/02/17 04:24 Malaria parasites Not Reportable 03/02/17 04:24 Melvin Bodies Not Reportable 03/02/17 04:24 Hem Pathologist Commnt No 03/02/17 04:24 PT 15.2 Sec. (12.2-14.9) H 03/01/17 21:30 INR 1.21 (0.87-1.13) H 03/01/17 21:30 VBG pH 7.372 (7.320-7.420) 03/01/17 20:25 Sodium 133 mmol/L (137-145) L 03/02/17 04:24 Potassium 4.5 mmol/L (3.6-5.0) 03/02/17 04:24 Chloride 98.3 mmol/L (98-107) 03/02/17 04:24 Carbon Dioxide 17 mmol/L (22-30) L 03/02/17 04:24 Anion Gap 22 mmol/L 03/02/17 04:24 BUN 33 mg/dL (9-20) H 03/02/17 04:24 Creatinine 1.4 mg/dL (0.8-1.5) 03/02/17 04:24 Estimated GFR 51 ml/min 03/02/17 04:24 BUN/Creatinine Ratio 23.57 % 03/02/17 04:24 Glucose 167 mg/dL (75-100) H 03/02/17 04:24 Lactic Acid 0.80 mmol/L (0.7-2.0) 03/01/17 21:30 Calcium 8.0 mg/dL (8.4-10.2) L 03/02/17 04:24 Total Bilirubin 0.70 mg/dL (0.1-1.2) 03/01/17 19:10 AST 30 units/L (5-40) 03/01/17 19:10 ALT 24 units/L (7-56) 03/01/17 19:10 Alkaline Phosphatase 75 units/L (35-129) 03/01/17 19:10 Troponin T < 0.010 ng/mL (0.00-0.029) 03/01/17 20:25 Total Protein 4.4 g/dL (6.3-8.2) L 03/01/17 19:10 Albumin 2.6 g/dL (3.9-5) L 03/01/17 19:10 Albumin/Globulin Ratio 1.4 % 03/01/17 19:10 Urine Color Yellow (Yellow) 03/01/17 21:15 Urine Turbidity Clear (Clear) 03/01/17 21:15 Urine pH 6.0 (5.0-7.0) 03/01/17 21:15 Ur Specific [place] 1.010 (1.003-1.030) 03/01/17 21:15 Urine Protein <15 mg/dl mg/dL (Negative) 03/01/17 21:15 Urine Glucose (UA) Neg mg/dL (Negative) 03/01/17 21:15 Urine Ketones Neg mg/dL (Negative) 03/01/17 21:15 Urine Blood Neg (Negative) 03/01/17 21:15 Urine Nitrite Neg (Negative) 03/01/17 21:15 Urine Bilirubin Neg (Negative) 03/01/17 21:15 Urine Urobilinogen < 2.0 mg/dL (<2.0) 03/01/17 21:15 Ur Leukocyte Esterase Neg (Negative) 03/01/17 21:15 Urine WBC (Auto) 1.0 /HPF (0.0-6.0) 03/01/17 21:15 Urine RBC (Auto) 1.0 /HPF (0.0-6.0) 03/01/17 21:15 Hyaline Casts 1 /LPF 03/01/17 21:15 Blood Type B POSITIVE 03/01/17 21:30 Antibody Screen Negative 03/01/17 21:30 Crossmatch See Detail 03/01/17 21:30
--- NOTE | 2017-03-02 16:05 | Consultation ---
History of Present Illness - Reason for Consult Consult date: 03/02/17 - History of Present Illness See dictated note. Medications and Allergies Allergies Allergy/AdvReac Type Severity Reaction Status Date / Time No Known Allergies Allergy Verified 03/01/17 18:40 Home Medications Medication Instructions Recorded Confirmed Last Taken Type Aspirin [Aspirin TAB] 325 mg PO QDAY #30 tablet 09/10/13 03/01/17 Unknown Rx Clopidogrel [Plavix] 75 mg PO QDAY #30 tablet 09/10/13 03/01/17 Unknown Rx Isosorbide Mononitrate [Isosorbide 30 mg PO DAILY #30 tab.er.24h 09/10/13 Unknown Rx Mononitrate ER] Metoprolol [Lopressor TAB] 25 mg PO BID #60 tablet 09/10/13 03/01/17 Unknown Rx Pravastatin (Nf) [Pravachol] 40 mg PO QHS #30 tablet 09/10/13 03/01/17 Unknown Rx Dexamethasone [Decadron] 4 mg PO Q12H 03/01/17 03/01/17 Unknown History HYDROmorphone [Dilaudid] 2 mg PO Q4HR 03/01/17 03/01/17 Unknown History Lisinopril [Zestril TAB] 40 mg PO QDAY 03/01/17 03/01/17 Unknown History Morphine [Morphine TAB] 15 mg PO 03/01/17 Unknown History amLODIPine [Norvasc] 5 mg PO DAILY 03/01/17 03/01/17 Unknown History metFORMIN [Glucophage] 750 mg PO BID 03/01/17 03/01/17 Unknown History Active Meds: Active Medications Acetaminophen (Tylenol) 650 mg PO Q4H PRN PRN Reason: Pain MILD(1-3)/Fever >100.5/ATKINS Bisacodyl (Dulcolax) 10 mg [place] QDAY PRN PRN Reason: Constipation unrelieved by MOM Dexamethasone (Decadron) 4 mg PO Q12HR [facility] Last Admin: 03/02/17 10:54 Dose: 4 mg Dextrose (D50w (25gm) Syringe) 50 ml IV PRN PRN PRN Reason: Hypoglycemia Hydromorphone HCl (Dilaudid) 2 mg PO Q4H [facility] Last Admin: 03/02/17 14:34 Dose: 2 mg Sodium Chloride (Nacl 0.45% 1000 Ml) 1,000 mls @ 50 mls/hr IV DIRECT AGUILAR Last Admin: 03/02/17 01:33 Dose: 50 mls/hr Magnesium Hydroxide (Milk Of Magnesia) 30 ml PO Q4H PRN PRN Reason: Constipation Metformin HCl (Glucophage) 750 mg PO BID [facility] Metoprolol Tartrate (Lopressor) 25 mg PO BID [facility] Ondansetron HCl (Zofran) 4 mg IV Q4H PRN PRN Reason: N/V unrelieved by Reglan Pantoprazole Sodium (Protonix) 40 mg IV DAILY [facility] Simvastatin (Zocor) 20 mg PO QHS [facility] Exam - Constitutional Vitals: Temp Pulse Resp BP Pulse Ox 98.0 F 97 H 20 94/58 94 03/02/17 09:04 03/02/17 12:14 03/02/17 09:04 03/02/17 09:04 03/02/17 09:09 Results - Labs CBC & Chem 7: 03/02/17 04:24 03/02/17 04:24 Labs: Abnormal lab results 03/02/17 03/02/17 Range/Units 04:24 04:24 WBC 13.5 H (4.5-11.0) K/mm3 RBC 3.17 L (3.65-5.03) M/mm3 Hgb 8.8 L (11.8-15.2) gm/dl Hct 26.7 L (35.5-45.6) % RDW 22.7 H (13.2-15.2) % Lymphocytes % (Manual) 7.0 L (13.4-35.0) % Seg Neutrophils # Man 8.8 H (1.8-7.7) K/mm3 Lymphocytes # (Manual) 0.9 L (1.2-5.4) K/mm3 Sodium 133 L (137-145) mmol/L Carbon Dioxide 17 L (22-30) mmol/L BUN 33 H (9-20) mg/dL Glucose 167 H (75-100) mg/dL Calcium 8.0 L (8.4-10.2) mg/dL Assessment and Plan Pt with widely metastatic lung cancer, with EGD on 02/17/17 showing 4 gastric ulcers, no stigmata, and biopsies positive for H pylori. Discharge from [facility] after transfusion, with final Hgb approx 9.3 per daughter. Admitted with mental status changes, transient, and found to have Heme + brown stool, and Hgb now 8.8. No GI complaints except stable occ abd pain. Imp - Heme + stool likely from known PUD. Doubt new lesion. Rec - cont PPI Adv diet Okay to D/C from GI standpoint and f/u with primary Oncology team, etc.
[2017-03-02] MEDS: PROTONIX IV SCH (19:14)
[2017-03-02] MEDS: LOPRESSOR PO SCH (21:58)
[2017-03-02] MEDS: GLUCOPHAGE PO SCH (21:58)
[2017-03-02] MEDS ORDERED: ZOCOR PO SCH (22:00)
--- NOTE | 2017-03-02 22:50 | Consultation ---
REASON FOR CONSULTATION: Hemoccult positive stool. HISTORY OF PRESENT ILLNESS: The patient is a 67-year-old [place] man who has metastatic lung cancer with metastases in the brain for which he just finished radiation therapy. He was recently hospitalized at [facility] and had a CT done there on 02/16/2017 of the abdomen and pelvis which showed multiple metastatic lesions throughout the lungs as well as a right upper lobe pulmonary mass measuring 5.4 cm, a right adrenal mass measuring 8.2 cm invading up into the liver, as well as the anterior kidney, and a L3 vertebral lytic lesion. The patient is being treated by Oncology at [facility]. During that hospital stay, the patient was found to be anemic and on aspirin and Plavix and underwent an upper endoscopy on 02/17/2017. This showed 4 nonbleeding crater gastric ulcers and mild esophagitis. A biopsy was obtained, which showed H. pylori and no malignancy. The patient was on proton pump inhibitors and discharged to home. He was apparently doing fairly well at home and had a transient episode with mental status changes for which he was brought to the Emergency Room. Here, he was found to be anemic and stool was found to be brown, but Hemoccult positive. GI consultation was therefore obtained. The patient's daughter states that he has been eating relatively well at home. His bowel movements are generally regular on a daily basis if he does eat. He does take aspirin and Plavix at home and has continued to do so after discharge. He did not have any GI complaints of abdominal pain, nausea, vomiting, rectal bleeding, or melena. He does have occasional upper abdominal pains that are stable. Of note, at [facility], he initially had hemoglobin of 6.9 and was transfused and the daughter states his hemoglobin was approximately 9.3 at time of discharge. ALLERGIES: He has no known drug allergies. PAST MEDICAL HISTORY: He has a history of: 1. Widely metastatic lung cancer as noted above. 2. Hypertension. 3. Diabetes. 4. Coronary artery disease with stent placement. HOME MEDICATIONS: Consist of metformin, amlodipine, Decadron, Dilaudid, pravastatin, metoprolol, lisinopril, isosorbide, Plavix, aspirin 325 mg, and morphine. FAMILY HISTORY: Noncontributory. SOCIAL HISTORY: Negative for current tobacco use, negative for alcohol as well. REVIEW OF SYSTEMS: Noncontributory. PHYSICAL EXAMINATION: GENERAL: This is a thin elderly [place]ian male lying in bed in no apparent distress. VITAL SIGNS: Temperature is 98.0, pulse 97, blood pressure is 94/58. HEENT: He is anicteric. Pupils are round and reactive. Oropharynx is clear. LUNGS: Clear bilaterally to auscultation. CARDIOVASCULAR: Regular with no extra heart sounds. ABDOMEN: Soft, good bowel sounds, no organomegaly or tenderness to palpation. RECTAL: Deferred, but the ER stated, it was brown with Hemoccult positive stool. EXTREMITIES: Reveal no edema. LABORATORY DATA: His white count is 13.5, hemoglobin 8.8, hematocrit 26.7, MCV of 84, platelet count of 208,000. His sodium is 132, potassium 4.5, chloride 98, bicarbonate 17, BUN 32, creatinine 1.4, glucose is 167. On admission, AST was 30, ALT of 24, alkaline phosphatase of 75, total bilirubin of 0.7, albumin of 2.6. IMPRESSION: Hemoccult positive stool -- in a patient with known ulcers within the last 2 weeks and on aspirin and Plavix, this would not be surprising. The patient's daughter states he is on pantoprazole. His hemoglobin is relatively stable compared to what the daughter reports. There is no evidence of significant active bleeding and at this point, I would not pursue any further GI evaluation, though he has never undergone a colonoscopy. I would not do so, of course given his other comorbidities. I would recommend stopping the aspirin if possible and just leaving the patient on Plavix alone or vice versa, based on what the patient's canvas repairer would recommend. Otherwise, monitor H and H and transfuse as needed. RECOMMENDATIONS: 1. Continue PPI. 2. Monitor H and H and transfuse as needed. 3. Consider stopping aspirin at time of discharge and just continue the Plavix. 4. If evidence of further aggressive bleeding, may need to consider colonoscopy. 5. Otherwise, would attribute anemia to combination of recent GI loss as well as bone marrow suppression due to underlying neoplastic process. JOB# [id number] HRC/NTS
[2017-03-03] MEDS: DILAUDID PO SCH ×3 (03:14→11:30)
[2017-03-03 06:58] LABS: Hematocrit 26.8 % (35.5-45.6); Hemoglobin 9.1 gm/dl (11.8-15.2); Mean Corpuscular HGB Conc 34 % (32-34); Mean Corpuscular Hemoglobin 28 pg (28-32); Mean Corpuscular Volume 84 fl (84-94); Platelet Count 259 K/mm3 (140-440)
[2017-03-03 07:15] LABS: Calcium 8.4 mg/dL (8.4-10.2); Potassium 4.6 mmol/L (3.6-5.0)
[2017-03-03 07:19] LABS: Red Cell Distribution Width 22.6 % (13.2-15.2)
[2017-03-03 08:13] VITALS: BP 99/65
[2017-03-03 08:26] LABS: Blastocytes % (Manual) 0 %
[2017-03-03 08:27] LABS: Anisocytosis 1+; Hypochromasia Few
[2017-03-03 08:28] LABS: Diff Status Complete
[2017-03-03] MEDS: DECADRON PO SCH (10:36)
[2017-03-03] MEDS: PROTONIX IV SCH (10:36)
[2017-03-03] MEDS: GLUCOPHAGE PO SCH (11:30)
[2017-03-03] MEDS: LOPRESSOR PO SCH (11:30)
[2017-03-03] MEDS ORDERED: PROTONIX PO SCH (12:00)
--- NOTE | 2017-03-03 12:18 | Discharge Summary ---
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 Patient was recently hospitalized at at [facility] and had a CT scan done on 02/16/17 of the abdomen and pelvis which showed possible metastatic lesions throughout the lung as well as a right upper lobe pulmonary mass and right adrenal mass invading into the liver as well as the anterior kidney and a L3 vertebral lytic lesion. The patient is followed by oncology at [facility]. During that hospital stay, the patient was found to be anemic and on aspirin and Plavix and underwent upper endoscopy on 02/17/17 which showed for nonbleeding cratered gastric ulcers and mild esophagitis. A biopsy was obtained which showed a spelled Sandy and no malignancy. The patient was on proton pump inhibitor and was discharged home. She was doing fairly well but had an episode with mental status change for which she is brought to the emergency room. On this admission , patient was found to be anemic and stool was found to be brown but Hemoccult positive. Patient's mental status improved during hospital stay. Patient quickly returned to his baseline. 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 No acute findings. GI recommended stopping aspirin and continuing only with Plavix. Anemia is attributed to combination of recent GI loss as well as bone marrow suppression due to underlying neoplastic process. Patient can be followed up as an outpatient for possible repeat EGD if necessary. Dedicated discharge time 31 minutes. Disposition: - TO HOME OR SELFCARE Time spent for discharge: 31 - Discharge Diagnoses (1) Encephalopathy Status: Acute (2) Lung cancer metastatic to bone Status: Acute (3) GI bleed Status: Acute Qualifiers: GI bleed type/associated pathology: G Gastritis type: G (4) HTN (hypertension) Status: Chronic Qualifiers: Hypertension type: H Core Measure Documentation - Palliative Care Palliative Care/ Comfort Measures: Not Applicable - Core Measures Any of the following diagnoses?: none Exam - Constitutional Vitals: Temp Pulse Resp BP Pulse Ox 98.5 F 84 16 99/65 96 03/03/17 07:52 03/03/17 10:00 03/03/17 07:52 03/03/17 07:53 03/03/17 04:32 General appearance: Present: no acute distress, well-nourished - EENT Eyes: Present: PERRL ENT: hearing intact, clear oral mucosa - Neck Neck: Present: supple, normal ROM - Respiratory Respiratory effort: normal Respiratory: bilateral: CTA - Cardiovascular Heart Sounds: Present: S1 & S2. Absent: rub, click - Extremities Extremities: pulses symmetrical, No edema Peripheral Pulses: within normal limits - Abdominal General gastrointestinal: Present: soft, non-tender, non-distended, normal bowel sounds Male genitourinary: Present: normal - Integumentary Integumentary: Present: clear, warm, dry - Musculoskeletal Musculoskeletal: gait normal, strength equal bilaterally - Psychiatric Psychiatric: appropriate mood/affect, intact judgment & insight - Neurologic Neurologic: CNII-XII intact, moves all extremities Plan Activity: no restrictions Weight Bearing Status: Full Weight Bearing Diet: regular Follow up with: MINA DE SANTIAGO MD [Primary Care Provider] - 3-5 Days Prescriptions: amLODIPine [Norvasc] 5 mg PO DAILY #30 tablet Clopidogrel [Plavix] 75 mg PO QDAY #30 tablet Dexamethasone [Decadron] 4 mg PO Q12H #60 tablet Lisinopril [Zestril TAB] 40 mg PO QDAY #30 tablet metFORMIN [Glucophage] 750 mg PO BID #60 tablet Metoprolol [Lopressor TAB] 25 mg PO BID #60 tablet Pantoprazole [Protonix TAB] 40 mg PO DAILY #30 tablet Pravastatin (Nf) [Pravachol] 40 mg PO QHS #30 tablet
== END 2017-03-03 14:36 | disposition home or self-care (01) | DRG 377 ==
LOC: ED 18:29 → 4A 23:22
PROVIDERS: ADMIT Internal Medicine; ATTEND Hospitalist
DX: K92.2 Gastrointestinal hemorrhage, unspecified (principal); N17.0 Acute kidney failure with tubular necrosis; G93.41 Metabolic encephalopathy; D62 Acute posthemorrhagic anemia; Z68.1 Body mass index [BMI] 19.9 or less, adult; C34.90 Malignant neoplasm of unspecified part of unspecified bronchus or lung; C79.51 Secondary malignant neoplasm of bone; D63.8 Anemia in other chronic diseases classified elsewhere; I10 Essential (primary) hypertension; E11.9 Type 2 diabetes mellitus without complications; I25.10 Atherosclerotic heart disease of native coronary artery without angina pectoris; E87.5 Hyperkalemia; Z95.5 Presence of coronary angioplasty implant and graft; Z79.02 Long term (current) use of antithrombotics/antiplatelets; Z79.84 Long term (current) use of oral hypoglycemic drugs; Z79.899 Other long term (current) drug therapy; Z79.82 Long term (current) use of aspirin; Z82.49 Family history of ischemic heart disease and other diseases of the circulatory system; Z92.3 Personal history of irradiation
CPT/HCPCS: 36415; 70450; 71010; 80048; 80053; 81001; 82140; 82271; 82805; 84484; 85007; 85025; 85610; 86850; 86900; 86901; 86920; 87040; 87086; 93005; 93010; 96374; C9113; J7040; J8540